=== PATIENT | female | born 1985 | race Caucasian/White ===

== ENCOUNTER 2016-09-13 17:48 | Emergency (ER) | payer BC ==
[2016-09-13] MEDS ORDERED: Lidocaine 1% 20 ML MDV INJECT ONE (17:53)
[2016-09-13] MEDS ORDERED: Diphtheria,Pertussis(Acell),Tetanus Vaccine 0.5 ML Syringe IM ONE (18:04)
--- NOTE | 2016-09-13 18:24 | EDM.PDOC ---
ED HPI GENERAL MEDICAL PROBLEM - General Chief Complaint: Laceration Stated Complaint: LACERATION RT THUMB Time Seen by Provider: 09/13/16 18:07 Source of Information: Reports: Patient History Limitations: Reports: No Limitations - History of Present Illness INITIAL COMMENTS - FREE TEXT/NARRATIVE: HISTORY AND PHYSICAL: []30-year-old female presenting with laceration to her right thumb History of Present Illness: []Patient was making potatoes using her "mandolin" she did not have the extra piece to stick into the potato. There by slicing her top of her thumb off. Patient brought the slice of skin however this is not viable for reattachment. Review of Systems: As per history of present illness and below otherwise all systems reviewed and negative. Past medical history: As per history of present illness and as reviewed below otherwise noncontributory. Surgical history: As per history of present illness and as reviewed below otherwise noncontributory. Social history: No reported history of drug or alcohol abuse. Family history: As per history of present illness and as reviewed below otherwise noncontributory. Physical exam: Alert and oriented female who answers in full sentences has pressure on her thumb the lateral portion of her thumb is where the injury occurred HEENT: Atraumatic, normocehpalic, pupils reactive, negative for conjunctival pallor or scleral icterus, mucous membranes moist, throat clear, neck supple, nontender, trachea midline. Lungs: Clear to auscultation, breath sounds equal bilaterally, chest non tender. Heart: S1S2, regular, negative for clicks, rubs, or JVD. Extremities: Right lateral thumb with injury skin removed with partial nail. Half centimeter, negative for cords or calf pain. Neurovascular unremarkable. Neuro: Awake, alert, oriented. Cranial nerves II through XII unremarkable. Cerebellum unremarkable. Motor and sensory unremarkable throughout. Exam nonfocal. Diagnostics: [] Therapeutics: [Surgicel/ 4 x 4/gauze wrap tube gauze] Impression: [laceration injury] Plan: []Home Elevate Hydrocodone/APAP 5/325 one 3 times a day when necessary pain #6 no refill Follow-up in 4 days with Clara Maher NP Definitive disposition and diagnosis as appropriate pending reevaluation and review of above. Onset: Today, Sudden Duration: Minutes: Location: Reports: Upper Extremity, Right - Related Data Allergies Allergy/AdvReac Type Severity Reaction Status Date / Time erythromycin base Allergy Vomiting Verified 09/13/16 18:21 Home Meds: Home Meds Ondansetron [Zofran ODT] 4 mg PO Q4HR 06/15/13 [History] Sucralfate [Carafate 1 Gm/10 ML] 10 ml PO QID 06/15/13 [History] Acetaminophen/HYDROcodone [Vienna 325-5 MG] 1 tab PO Q4H PRN #20 tab 04/15/14 [Rx ] Hydrocodone/Acetaminophen [Vienna 5-325] 1 tab PO Q4H PRN #20 tablet 04/15/14 [Rx ] Sulfamethoxazole/Trimethoprim [Bactrim 400-80 MG] 1 each PO BID #20 tablet 04/15 [Rx] diphenhydrAMINE HCl [Benadryl] 25 mg PO Q6HR #20 capsule 04/15/14 [Rx] methylPREDNISolone [Medrol] 4 mg PO ASDIRECTED #21 dospk 04/15/14 [Rx] Social & Family History - Tobacco Use Smoking Status *Q: Current Every Day Smoker Years of Tobacco use: 13 - Alcohol Use Days Per Week of Alcohol Use: 1 Number of Drinks Per Day: 3 Total Drinks Per Week: 3 - Recreational Drug Use Recreational Drug Use: No ED ROS GENERAL - Review of Systems Review Of Systems: ROS reveals no pertinent complaints other than HPI. ED EXAM, SKIN/RASH Exam: See Below ED SKIN PROCEDURES - Laceration/Wound Repair Right Lateral Finger Lac/Wound length In cm: 0.5 Appearance: Superficial, Clean Distal NVT: Neuro & Vascular Intact, No Tendon Injury Exploration/Debridement/Repair: Wound Explored, in a Bloodless Field Closed with: Other (Surgicel) Drain Placement: No Sterile Dressing Applied: Provider Tetanus Status Addressed: Yes Complications: No Course - Orders/Labs/Meds Orders: Active Orders 24 hr Category Date Time Status Vaccines to be Administered [RC] PER UNIT ROUTINE Care 09/13/16 18:04 Ordered Meds: Medications Discontinued Medications Generic Name Dose Route Start Last Admin Trade Name Freq PRN Reason Stop Dose Admin Diphtheria/Tetanus/Acell Pertussis 0.5 ml 09/13/16 18:04 Adacel IM 09/13/16 18:05 .ONCE ONE Lidocaine HCl 20 ml 09/13/16 17:53 Xylocaine 1% INJECT 09/13/16 17:54 ONETIME ONE Departure - Departure Time of Disposition: 18:24 Disposition: Home, Self-Care 01 Condition: Good Clinical Impression: Laceration - Discharge Information Instructions: Laceration Care, Adult, [id number] Forms: ED Department Discharge Additional Instructions: The following information is given to patients seen in the emergency department who are being discharged to home. This information is to outline your options for follow-up care. We provide all patients seen in our emergency department with a follow-up referral. The need for follow-up, as well as the timing and circumstances, are variable depending upon the specifics of your emergency department visit. If you don't have a primary care physician on staff, we will provide you with a referral. We always advise you to contact your personal physician following an emergency department visit to inform them of the circumstance of the visit and for follow-up with them and/or the need for any referrals to a consulting specialist. The emergency department will also refer you to a specialist when appropriate. This referral assures that you have the opportunity for followup care with a specialist. All of these measure are taken in an effort to provide you with optimal care, which includes your followup. Under all circumstances we always encourage you to contact your private physician who remains a resource for coordinating your care. When calling for followup care, please make the office aware that this follow-up is from your recent emergency room visit. If for any reason you are refused follow-up, please contact the emergency department at and asked to speak to the emergency department charge nurse. Hydrocodone/APAP 5/325 mg take 1 tablet 3 times a day when necessary pain #6 no refill Follow-up with Calra Chamorro NP in 4 days - My Orders Last 24 Hours: My Active Orders 09/13/16 18:04 Vaccines to be Administered [RC] PER UNIT ROUTINE - Assessment/Plan Last 24 Hours: My Active Orders 09/13/16 18:04 Vaccines to be Administered [RC] PER UNIT ROUTINE
[2016-09-13 18:25] VITALS: BP 131/65
== END 2016-09-13 18:37 | disposition home or self-care (01) ==
LOC: MW.ED 17:48
DX: S61.011A Laceration without foreign body of right thumb without damage to nail, initial encounter (principal); F17.210 Nicotine dependence, cigarettes, uncomplicated; Z88.1 Allergy status to other antibiotic agents; Z79.899 Other long term (current) drug therapy; Z23 Encounter for immunization; W26.8XXA Contact with other sharp object(s), not elsewhere classified, initial encounter
CPT/HCPCS: 12001; 90471; 90715; 99282-25; 99283

== ENCOUNTER 2020-03-04 08:00 | Day surgery (SDC) | payer BC ==
[~2020-03-04 08:00] MED LIST: Bupivacaine 0.5% 30 ML SDV ONE; Lidocaine 1% 20 ML MDV ONE; Methylene Blue 50 MG/10 ML Ampule ONE; Midazolam 1 MG/ML 2 ML SDV ONE; Propofol 200 MG/20 ML SDV ONE; Sodium Chloride 0.9% 10 ML SDV IV PRN; Sodium Chloride 0.9% 10 ML Syringe FLUSH PRN; Sodium Chloride 0.9% 2.5 ML Syringe FLUSH PRN; ceFAZolin 2 GM in Premix Bag 1 BAG IV ONE; fentaNYL 100 MCG/2 ML SDV ONE
--- NOTE | 2020-03-04 08:47 | PCM.PREANE ---
Preanesthetic Assessment - Anesthesia/Transfusion/Family Hx Anesthesia History: Prior Anesthesia Reaction (slow to get out of anesthesia) Family History of Anesthesia Reaction: No Transfusion History: Prior Transfusion Without Reaction Intubation History: Unknown - Review of Systems General: No Symptoms Pulmonary: No Symptoms Cardiovascular: No Symptoms Gastrointestinal: No Symptoms Neurological: No Symptoms Other: Reports: None - Physical Assessment Height: 5 ft Weight: 77.111 kg ASA Class: 2 Mental Status: Alert & Oriented x3 Airway Class: Mallampati = 2 Dentition: Reports: Normal Dentition Thyro-Mental Finger Breadths: 3 Mouth Opening Finger Breadths: 3 ROM/Head Extension: Full Lungs: Clear to Auscultation, Normal Respiratory Effort Cardiovascular: Regular Rate, Regular Rhythm - Allergies Allergies/Adverse Reactions: Allergies Allergy/AdvReac Type Severity Reaction Status Date / Time erythromycin base Allergy Vomiting Verified 02/28/20 11:29 - Blood Blood Available: No - Anesthesia Plan Pre-Op Medication Ordered: None - Acknowledgements Anesthesia Type Planned: General Anesthesia Pt an Appropriate Candidate for the Planned Anesthesia: Yes Alternatives and Risks of Anesthesia Discussed w Pt/Guardian: Yes Pt/Guardian Understands and Agrees with Anesthesia Plan: Yes PreAnesthesia Questionnaire - Past Health History Medical/Surgical History: Denies Medical/Surgical History HEENT History: Reports: None Cardiovascular History: Reports: None Respiratory History: Reports: None Gastrointestinal History: Reports: None Genitourinary History: Reports: None Musculoskeletal History: Reports: Back Pain, Chronic Neurological History: Reports: None Psychiatric History: Reports: None Endocrine/Metabolic History: Reports: Obesity/BMI 30+ (BMI 33.2) Hematologic History: Reports: None Immunologic History: Reports: None Oncologic (Cancer) History: Reports: None Dermatologic History: Reports: Eczema - Infectious Disease History Infectious Disease History: Reports: Chicken Pox Other Infectious Disease History: when a child - Past Surgical History Head Surgeries/Procedures: Reports: None HEENT Surgical History: Reports: None Cardiovascular Surgical History: Reports: None GI Surgical History: Reports: Cholecystectomy, Hernia, Abdominal Female Surgical History: Reports: None Endocrine Surgical History: Reports: None Neurological Surgical History: Reports: None Musculoskeletal Surgical History: Reports: None Oncologic Surgical History: Reports: None - SUBSTANCE USE Tobacco Use Status *Q: Current Some Day Tobacco User - HOME MEDS Home Medications: Home Meds . [No Known Home Meds] 02/28/20 [History] - CURRENT (IN HOUSE) MEDS Current Meds: Current Medications Lactated Ringer's (Ringers, Lactated) 1,000 mls @ 125 mls/hr IV ASDIRECTED MEGHAN Sodium Chloride (Saline Flush) 2.5 ml FLUSH ASDIRECTED PRN PRN Reason: Keep Vein Open Sodium Chloride (Normal Saline) 10 ml IV ASDIRECTED PRN PRN Reason: IV Use Sodium Chloride (Saline Flush) 10 ml FLUSH ASDIRECTED PRN PRN Reason: Keep Vein Open Discontinued Medications Bupivacaine HCl (Marcaine 0.5%) Confirm Administered Dose 30 ml .ROUTE .STK-MED ONE Stop: 03/04/20 07:25 Fentanyl (Sublimaze) Confirm Administered Dose 100 mcg .ROUTE .STK-MED ONE Stop: 03/04/20 07:49 Cefazolin Sodium/Dextrose 2 gm (/ Premix) 50 mls @ 100 mls/hr IV ONETIME ONE Stop: 03/03/20 11:20 Lidocaine HCl (Xylocaine 1%) Confirm Administered Dose 20 ml .ROUTE .STK-MED ONE Stop: 03/04/20 07:25 Lidocaine HCl (Xylocaine-Mpf 1%) Confirm Administered Dose 5 ml .ROUTE .STK-MED ONE Stop: 03/04/20 07:49 Methylene Blue (Provayblue) Confirm Administered Dose 50 mg .ROUTE .STK-MED ONE Stop: 03/04/20 07:25 Midazolam HCl (Versed 1 Mg/Ml) Confirm Administered Dose 2 mg .ROUTE .STK-MED ONE Stop: 03/04/20 07:49 Propofol (Diprivan 20 Ml) Confirm Administered Dose 200 mg .ROUTE .STK-MED ONE Stop: 03/04/20 07:49
[2020-03-04] MEDS ORDERED: ceFAZolin/Dextrose,Iso-Osmotic 2 GM/50 ML Duplex Bag IV ONE (09:47)
[2020-03-04] MEDS ORDERED: Octyl 2-Cyanoacrylate 1 Tube ONE (10:29)
[2020-03-04] MEDS ORDERED: Ketorolac 30 MG/ML SDV ONE (10:34)
[2020-03-04] MEDS ORDERED: Ondansetron 4 MG/2 ML SDV ONE (10:34)
[2020-03-04] MEDS ORDERED: Dexamethasone 4 MG/ML 5 ML MDV ONE (10:34)
[2020-03-04] MEDS ORDERED: HYDROmorphone 2 MG/ML Syringe IVPUSH PRN (10:39)
[2020-03-04] MEDS ORDERED: fentaNYL 100 MCG/2 ML SDV IVPUSH PRN (10:39)
[2020-03-04] MEDS ORDERED: 50% Dextrose in Water 50 ML Syringe IVPUSH PRN (10:39)
[2020-03-04] MEDS ORDERED: Atropine 0.1 MG/ML 10 ML Syringe IVPUSH PRN ×2 (10:39)
[2020-03-04] MEDS ORDERED: EPINEPHrine 1:10,000 1 MG/10 ML Syringe IVPUSH PRN (10:39)
[2020-03-04] MEDS ORDERED: Albuterol 0.083% 2.5 MG/3 ML Neb Soln NEB PRN (10:39)
[2020-03-04] MEDS ORDERED: Naloxone 0.4 MG/ML Syringe IVPUSH PRN (10:39)
[2020-03-04] MEDS ORDERED: Ondansetron 4 MG/2 ML SDV IVPUSH PRN (10:39)
--- NOTE | 2020-03-04 11:32 | PCM.OPNOTE ---
- General Post-Op/Procedure Note Date of Surgery/Procedure: 03/04/20 Operative Procedure(s): Excision Left Upper Quadrant Lipoma Findings: 11 x 6 x 2 cm lipoma of the LUQ abdomen extending onto chest wall. Pre Op Diagnosis: Lipoma of abdominal wall Post-Op Diagnosis: same Anesthesia Technique: General ET Tube Primary Surgeon: Socorro Mendez Condition: Good Free Text/Narrative:: Intake & Output 03/03/20 03/04/20 03/04/20 22:59 06:59 14:59 Intake Total 1100 Balance 1100
--- NOTE | 2020-03-04 11:36 | PCM.POSTAN ---
POST ANESTHESIA ASSESSMENT - MENTAL STATUS Mental Status: Alert, Oriented - VITAL SIGNS Vital Signs: Last Vital Signs Temp 36.7 C 03/04/20 11:03 Pulse 59 L 03/04/20 11:18 Resp 14 03/04/20 11:18 BP 126/61 03/04/20 11:18 Pulse Ox 98 03/04/20 11:18 - RESPIRATORY Respiratory Status: Respiratory Rate WNL, Airway Patent, O2 Saturation Stable - CARDIOVASCULAR CV Status: Pulse Rate WNL, Blood Pressure Stable - GASTROINTESTINAL GI Status: No Symptoms - PAIN Pain Score: 0 - POST OP HYDRATION Hydration Status: Adequate & Stable - OBSERVATIONS Free Text/Narrative:: No anesthesia problems
[2020-03-04] MEDS: Lactated Ringers 1,000 ML IV SCH (11:55)
--- NOTE | 2020-03-04 12:15 | PCM48HPAN ---
Post Anesthesia Note - EVALUATION WITHIN 48HRS OF ANESTHETIC Vital Signs in Normal Range: Yes Patient Participated in Evaluation: Yes Respiratory Function Stable: Yes Airway Patent: Yes Cardiovascular Function Stable: Yes Hydration Status Stable: Yes Pain Control Satisfactory: Yes Nausea and Vomiting Control Satisfactory: Yes Mental Status Recovered: Yes Vital Signs: Last Vital Signs Temp 36.7 C 03/04/20 11:03 Pulse 59 L 03/04/20 11:18 Resp 14 03/04/20 11:18 BP 126/61 03/04/20 11:18 Pulse Ox 98 03/04/20 11:18 - COMMENTS/OBSERVATIONS Free Text/Narrative:: No anesthesia problems
[2020-03-04 12:40] VITALS: BP 122/68; PULSE 62
--- NOTE | 2020-03-04 12:50 | OR ---
SURGEON: SOCORRO MENDEZ MD DATE OF PROCEDURE: 03/04/2020 PREOPERATIVE DIAGNOSIS: Left upper quadrant lipoma. POSTOPERATIVE DIAGNOSIS: Left upper quadrant lipoma. PROCEDURE PERFORMED: Excision of left upper quadrant lipoma. PRIMARY SURGEON: Socorro Mendez MD ANESTHESIA: General endotracheal anesthesia. FLUIDS: 1100 mL of crystalloid. ESTIMATED BLOOD LOSS: 5 mL. FINDINGS: 11 x 6 x 2 cm large lobular lipoma located along the left upper quadrant along the abdominal wall and lower chest wall. No margins associated with case. COMPLICATIONS: None. INDICATIONS: The patient is a 34-year-old female who presented to clinic with a left upper quadrant mass. The mass has been present for many years, but has been slowly growing in size and is now symptomatic. The decision was made to proceed with an excision of what felt like a lipoma. I explained the procedure, expected perioperative course, and the risks. She verbalized understanding and wishes to proceed. PROCEDURE IN DETAIL: The patient was brought into the OR and placed on the OR table in supine position. A time-out was completed verifying the patient's name, age, date of , allergies, and procedure to be performed. General endotracheal anesthesia was induced. The patient was then placed in a right lateral decubitus position, taking care to secure the patient to the table and to appropriately pad all bony surfaces. The left back and flank were prepped and draped in usual standard fashion. I anesthetized the skin overlying the apex of the mass with 0.5% Marcaine plain. A 5 cm incision was made using a 15 blade. Cautery was used to dissect down through the layers of the subcutaneous fat. I then encountered a large lobular mass consistent with that of a lipoma. Using blunt dissection, I dissected the overlying subcutaneous fat away from the top of the mass. Retractors were then placed, and I continued my dissection along the sides of the mass itself. I then lifted up the medial edge, and using electrocautery, dissected the mass off the underlying muscle tissue. This was carried from medial to lateral. Once the mass was completely freed from the surrounding structures, it was placed on the back table. It measured 11 x 6 x 2 cm in size. Using electrocautery, I achieved hemostasis within my wound bed. I palpated and could not feel any further tissue that felt like a lipoma. All the fat within the wound appeared to be normal appearing fat. I irrigated the wound with normal saline. The wound was then closed with a running 3-0 Vicryl suture in the subcutaneous fat layer. In the more superficial subcutaneous fat, interrupted 3-0 Vicryl were used to reapproximate the skin. I then closed the skin with a running 4-0 Monocryl stitch. Dermabond and sterile dressings were applied. The patient tolerated the procedure well and was transferred to the PACU in stable condition. All counts were complete and correct at the end of the case. SERGEI FARMER /[id number] LAURA
== END 2020-03-04 12:02 | disposition home or self-care (01) ==
LOC: MW.SDS 08:00
PROVIDERS: ATTEND Surgery
DX: D17.1 Benign lipomatous neoplasm of skin and subcutaneous tissue of trunk (principal); E66.9 Obesity, unspecified; F17.200 Nicotine dependence, unspecified, uncomplicated; Z88.5 Allergy status to narcotic agent; Z91.048 Other nonmedicinal substance allergy status; Z91.011 Allergy to milk products; Z90.49 Acquired absence of other specified parts of digestive tract; Z68.33 Body mass index [BMI] 33.0-33.9, adult
CPT/HCPCS: 22903; 81025; 88304; A9270; J0131; J0690; J1100; J1885; J2001; J2250; J2704; J3490; J7120; 00300; J2405; J3010